=== PATIENT | male | born 1940 | race Caucasian/White ===

== ENCOUNTER 2021-04-09 16:06 | Emergency (ER) | payer BC ==
[2021-04-09 17:53] LABS: BASO % 1.1 % (0-2.0); EOS % 0.3 % (0-4.5); HEMATOCRIT 40.3 % (35.4-49); HEMOGLOBIN 13.3 GM/dL (11.7-16.9); LYMPH % 31.6 % (8-40); MCH 30.1 pg (25.7-33.7); MCHC 33.1 g/dl (32.0-35.9); MEAN CELL VOLUME 90.7 fl (80-96); MEAN PLT VOLUME 7.5 fl (7.5-11.1); MONO % 5.2 % (3.8-10.2); NEUT % 61.8 % (42.8-82.8); PLATELET COUNT 167 10^3/uL (134-434); RBC 4.44 M/mm3 (4.00-5.60); RDW 15.1 % (11.9-15.9); WHITE BLOOD COUNT 7.6 K/mm3 (4.0-10.0)
[2021-04-09] MEDS ORDERED: DIPHTH,PERTUSS(ACELL),TET 0.5 ML DISP.SYRIN IM ONE ×2 (18:10→18:49)
[2021-04-09 18:12] LABS: CHLORIDE 106 mmol/L (98-107); SODIUM 138 mmol/L (136-145)
[2021-04-09 18:14] LABS: CALCIUM 7.9 mg/dL (8.5-10.1)
[2021-04-09 18:15] LABS: ALBUMIN 3.9 g/dl (3.4-5.0); ANION GAP 8 MMOL/L (8-16); CO2 25 mmol/L (21-32); GLUCOSE,RANDOM 102 mg/dL (74-106)
[2021-04-09 18:17] VITALS: BP 142/89; PULSE 90; TEMP 97.9; BMI 30.4
[2021-04-09 18:17] LABS: SGPT/ALT 25 U/L (13-61)
[2021-04-09 18:18] LABS: CREATININE 1.1 mg/dL (0.55-1.3); SGOT/AST 32 U/L (15-37)
[2021-04-09 18:19] LABS: BILIRUBIN,TOTAL 0.5 mg/dL (0.2-1); TOT PROT 7.2 g/dl (6.4-8.2)
[2021-04-09 18:20] LABS: ALK PHOS 76 U/L (45-117)
[2021-04-10 12:30] LABS: MAGNESIUM 2.1 mg/dL (1.8-2.4)
[2021-04-10 12:35] LABS: PHOSPHOROUS 3.1 mg/dL (2.5-4.9)
== END 2021-04-09 19:00 | disposition left against medical advice (07) ==
LOC: JER 16:06
PROC: 3E0234Z Introduction of Serum, Toxoid and Vaccine into Muscle, Percutaneous Approach (ICD-10-PCS; principal; 2021-04-09)
DX: S01.21XA Laceration without foreign body of nose, initial encounter (principal)
CPT/HCPCS: 36415; 70450-TC; 72125-TC; 80053; 82550; 82553; 83735; 84100; 84484; 85025; 90715; 93005; 93010; 99285-25

== ENCOUNTER 2022-05-24 08:21 | Inpatient (IN) | payer BC ==
[2022-05-24] MEDS ORDERED: SODIUM CHLORIDE 1,000 ML IV STA ×2 (09:17→14:48)
[2022-05-24] MEDS ORDERED: VANCOMYCIN 1 GM in D5W (PRE-DOCKED) 1,000 MG/250 ML IVPB ONE (10:01)
[2022-05-24] MEDS ORDERED: PIPERACILLIN/TAZOB 3.375 GM 3.375 GM in DEXTROSE 5%-WATER - 50 ML IVPB ONE (10:04)
[2022-05-24 10:09] LABS: BASO % 1.4 % (0-2.0); EOS % 1.4 % (0-4.5); HEMATOCRIT 41.1 % (35.4-49); HEMOGLOBIN 13.9 GM/dL (11.7-16.9); MCH 31.1 pg (25.7-33.7); MCHC 33.9 g/dl (32.0-35.9); MEAN CELL VOLUME 91.9 fl (80-96); MEAN PLT VOLUME 8.8 fl (7.5-11.1); MONO % 9.3 % (3.8-10.2); NEUT % 62.9 % (42.8-82.8); PLATELET COUNT 185 10^3/uL (134-434); RBC 4.47 M/mm3 (4.00-5.60); RDW 13.8 % (11.9-15.9); WHITE BLOOD COUNT 6.6 K/mm3 (4.0-10.0)
[2022-05-24 10:30] LABS: ALBUMIN 3.9 g/dl (3.4-5.0); BLOOD UREA NITROGEN 18.4 mg/dL (7-18); CALCIUM 8.7 mg/dL (8.5-10.1)
[2022-05-24 10:33] LABS: CREATININE 1.3 mg/dL (0.55-1.3)
[2022-05-24] MEDS ORDERED: VANCOMYCIN/WATER FOR INJ (PEG) 1,000 MG/200 ML BAG IVPB ONE (10:34)
[2022-05-24] MEDS ORDERED: PIPERACILLIN/TAZOB 3.375 GM 3.375 GM/50 ML BAG IVPB ONE ×2 (10:35→21:58)
[2022-05-24 11:22] LABS: INR 1.09 (0.83-1.09); PROTHROMBIN TIME (PATIENT) 12.6 SEC (9.7-13.0)
[2022-05-24 11:24] LABS: ACTIVATED PTT 30.1 SECONDS (25.2-36.5)
[2022-05-24] MEDS ORDERED: OFLOXACIN 0.3% OTIC SOLUTION 5 ML BOTTLE AS ONE (16:25)
[2022-05-24] MEDS ORDERED: SODIUM CHLORIDE 1,000 ML IV SCH (17:00)
[2022-05-24] MEDS ORDERED: amLODIPine BESYLATE 5 MG TABLET (FP) ONE (17:37)
[2022-05-24] MEDS: amLODIPine BESYLATE 5 MG TABLET (FP) PO SCH (17:48)
[2022-05-24] MEDS ORDERED: PIPERACILLIN/TAZOB 3.375 GM 3.375 GM in DEXTROSE 5%-WATER - 50 ML IVPB SCH (18:00)
[2022-05-24 22:40] LABS: URINE APPEARANCE CLEAR; URINE BILIRUBIN NEGATIVE (NEGATIVE); URINE COLOR YELLOW; URINE GLUCOSE (UA) NEGATIVE (NEGATIVE); URINE KETONE NEGATIVE (NEGATIVE); URINE LEUK ESTERASE NEGATIVE (NEGATIVE); URINE NITRITE NEGATIVE (NEGATIVE); URINE PROTEIN NEGATIVE (NEGATIVE)
[2022-05-25 02:00] VITALS: BMI 25.2
[2022-05-25] MEDS: PIPERACILLIN/TAZOB 3.375 GM 3.375 GM in DEXTROSE 5%-WATER - 50 ML IVPB SCH ×3 (05:09→17:28)
[2022-05-25 09:19] LABS: BASO % 2.4 % (0-2.0); EOS % 2.8 % (0-4.5); HEMATOCRIT 42.2 % (35.4-49); HEMOGLOBIN 13.9 GM/dL (11.7-16.9); LYMPH % 24.2 % (8-40); MCH 30.3 pg (25.7-33.7); MCHC 32.9 g/dl (32.0-35.9); MEAN CELL VOLUME 92.3 fl (80-96); MEAN PLT VOLUME 9.6 fl (7.5-11.1); MONO % 7.8 % (3.8-10.2); NEUT % 62.8 % (42.8-82.8); PLATELET COUNT 179 10^3/uL (134-434); RBC 4.57 M/mm3 (4.00-5.60); RDW 13.7 % (11.9-15.9); WHITE BLOOD COUNT 4.9 K/mm3 (4.0-10.0)
[2022-05-25 09:26] LABS: INR 1.1 (0.83-1.09); PROTHROMBIN TIME (PATIENT) 12.7 SEC (9.7-13.0)
[2022-05-25 09:29] LABS: ACTIVATED PTT 27.9 SECONDS (25.2-36.5)
[2022-05-25 09:35] LABS: ALBUMIN 3.5 g/dl (3.4-5.0); CALCIUM 8.4 mg/dL (8.5-10.1)
[2022-05-25 09:38] LABS: CREATININE 1.2 mg/dL (0.55-1.3); PHOSPHOROUS 2.4 mg/dL (2.5-4.9)
[2022-05-25 09:40] LABS: BILIRUBIN,TOTAL 0.7 mg/dL (0.2-1); TOT PROT 6.3 g/dl (6.4-8.2)
[2022-05-25] MEDS: ENOXAPARIN NA (PORCINE) 40 MG/0.4 ML DISP.SYRIN SQ SCH (09:50)
[2022-05-25] MEDS: OFLOXACIN 0.3% OTIC SOLUTION 5 ML BOTTLE AS SCH (09:51)
[2022-05-25] MEDS: amLODIPine BESYLATE 5 MG TABLET (FP) PO SCH (09:51)
[2022-05-25] MEDS: VANCOMYCIN/WATER FOR INJ (PEG) 1,000 MG/200 ML BAG IVPB SCH ×2 (11:36→22:51)
[2022-05-25] MEDS: LOSARTAN POTASSIUM 50 MG TABLET PO SCH (14:26)
[2022-05-25] MEDS ORDERED: PIPERACILLIN/TAZOB 3.375 GM 3.375 GM in DEXTROSE 5%-WATER - 50 ML IVPB SCH (18:00)
[2022-05-25] MEDS ORDERED: LOSARTAN POTASSIUM 25 MG TABLET PO ONE (23:01)
[2022-05-26] MEDS: PIPERACILLIN/TAZOB 3.375 GM 3.375 GM in DEXTROSE 5%-WATER - 50 ML IVPB SCH ×3 (01:20→17:24)
[2022-05-26 09:50] LABS: BASO % 1.8 % (0-2.0); EOS % 1.4 % (0-4.5); HEMATOCRIT 45.1 % (35.4-49); LYMPH % 24.8 % (8-40); MCHC 33.2 g/dl (32.0-35.9); MEAN CELL VOLUME 93.5 fl (80-96); MEAN PLT VOLUME 8.7 fl (7.5-11.1); MONO % 13.1 % (3.8-10.2); NEUT % 58.9 % (42.8-82.8); PLATELET COUNT 191 10^3/uL (134-434); RBC 4.83 M/mm3 (4.00-5.60); RDW 13.6 % (11.9-15.9); WHITE BLOOD COUNT 4.9 K/mm3 (4.0-10.0)
[2022-05-26 09:56] LABS: CALCIUM 8.7 mg/dL (8.5-10.1)
[2022-05-26 09:57] LABS: ALBUMIN 3.8 g/dl (3.4-5.0); BLOOD UREA NITROGEN 17.4 mg/dL (7-18)
[2022-05-26 10:00] LABS: CREATININE 1.3 mg/dL (0.55-1.3)
[2022-05-26 10:02] LABS: BILIRUBIN,TOTAL 0.5 mg/dL (0.2-1); TOT PROT 6.9 g/dl (6.4-8.2)
[2022-05-26] MEDS: amLODIPine BESYLATE 10 MG TABLET (FP) PO SCH (10:16)
[2022-05-26] MEDS: LOSARTAN POTASSIUM 50 MG TABLET PO SCH (10:16)
[2022-05-26] MEDS: ENOXAPARIN NA (PORCINE) 40 MG/0.4 ML DISP.SYRIN SQ SCH (10:17)
[2022-05-26] MEDS: OFLOXACIN 0.3% OTIC SOLUTION 5 ML BOTTLE AS SCH (10:17)
[2022-05-26 10:51] LABS: ERYTHROCYTE SEDIMENTATION RATE 5 mm/hr (0-20)
[2022-05-26] MEDS: VANCOMYCIN/WATER FOR INJ (PEG) 1,000 MG/200 ML BAG IVPB SCH ×2 (11:16→22:58)
[2022-05-26 21:34] VITALS: RESP 20
[2022-05-27] MEDS: PIPERACILLIN/TAZOB 3.375 GM 3.375 GM in DEXTROSE 5%-WATER - 50 ML IVPB SCH ×2 (01:34→09:16)
[2022-05-27] MEDS: LOSARTAN POTASSIUM 50 MG TABLET PO SCH (09:15)
[2022-05-27] MEDS: amLODIPine BESYLATE 10 MG TABLET (FP) PO SCH (09:15)
[2022-05-27] MEDS: ENOXAPARIN NA (PORCINE) 40 MG/0.4 ML DISP.SYRIN SQ SCH (09:15)
[2022-05-27] MEDS: OFLOXACIN 0.3% OTIC SOLUTION 5 ML BOTTLE AS SCH (09:16)
[2022-05-27 09:44] LABS: EOS % 1.9 % (0-4.5); HEMATOCRIT 44.5 % (35.4-49); HEMOGLOBIN 14.7 GM/dL (11.7-16.9); LYMPH % 37.4 % (8-40); MCH 30.5 pg (25.7-33.7); MCHC 33.1 g/dl (32.0-35.9); MEAN CELL VOLUME 92.1 fl (80-96); MEAN PLT VOLUME 8.9 fl (7.5-11.1); MONO % 11.1 % (3.8-10.2); NEUT % 47.6 % (42.8-82.8); PLATELET COUNT 193 10^3/uL (134-434); RBC 4.84 M/mm3 (4.00-5.60); RDW 14.2 % (11.9-15.9); WHITE BLOOD COUNT 6.3 K/mm3 (4.0-10.0)
[2022-05-27 10:37] LABS: ALBUMIN 3.8 g/dl (3.4-5.0); BLOOD UREA NITROGEN 15.1 mg/dL (7-18); CALCIUM 8.8 mg/dL (8.5-10.1)
[2022-05-27 10:40] LABS: CREATININE 1.3 mg/dL (0.55-1.3)
[2022-05-27 10:42] LABS: BILIRUBIN,TOTAL 0.4 mg/dL (0.2-1); TOT PROT 7.1 g/dl (6.4-8.2)
[2022-05-27] MEDS: VANCOMYCIN/WATER FOR INJ (PEG) 1,000 MG/200 ML BAG IVPB SCH (11:40)
[2022-05-27 14:55] VITALS: BP 128/82; PULSE 77; TEMP 98.1
== END 2022-05-27 15:00 | disposition home or self-care (01) | DRG 155 ==
LOC: JER 08:21 → JERBED 16:22 → J7W 23:48
PROVIDERS: ADMIT Internal Medicine; ATTEND Internal Medicine
DX: H60.392 Other infective otitis externa, left ear (principal); L03.211 Cellulitis of face; I10 Essential (primary) hypertension; L01.09 Other impetigo; I16.0 Hypertensive urgency; H66.93 Otitis media, unspecified, bilateral; Z86.73 Personal history of transient ischemic attack (TIA), and cerebral infarction without residual deficits
CPT/HCPCS: 36415; 70480-TC; 80053; 80061; 81003; 82962; 83036; 83735; 84100; 84443; 85025; 85610; 85651; 85730; 86140; 87040; 87070; 87086; 87186; 87205; 93005; 93010; 99285-25; C9803-CS; U0003; U0005

== ENCOUNTER 2022-06-22 09:11 | Emergency (ER) | payer BC ==
[2022-06-22 09:18] VITALS: BP 142/77; PULSE 88; RESP 16; TEMP 98.2; BMI 25.8
[2022-06-22 10:07] LABS: BASO % 1.6 % (0-2.0); EOS % 2.4 % (0-4.5); HEMATOCRIT 41.8 % (35.4-49); HEMOGLOBIN 13.6 GM/dL (11.7-16.9); LYMPH % 20.9 % (8-40); MCH 30.2 pg (25.7-33.7); MCHC 32.6 g/dl (32.0-35.9); MEAN CELL VOLUME 92.5 fl (80-96); MEAN PLT VOLUME 9.8 fl (7.5-11.1); NEUT % 68.1 % (42.8-82.8); PLATELET COUNT 208 10^3/uL (134-434); RBC 4.52 M/mm3 (4.00-5.60); RDW 13.7 % (11.9-15.9); WHITE BLOOD COUNT 10.3 K/mm3 (4.0-10.0)
[2022-06-22 10:10] LABS: URINE APPEARANCE CLEAR; URINE BILIRUBIN NEGATIVE (NEGATIVE); URINE COLOR YELLOW; URINE GLUCOSE (UA) NEGATIVE (NEGATIVE); URINE KETONE NEGATIVE (NEGATIVE); URINE LEUK ESTERASE NEGATIVE (NEGATIVE); URINE NITRITE NEGATIVE (NEGATIVE); URINE PROTEIN NEGATIVE (NEGATIVE); URINE UROBILINOGEN 0.2 mg/dL (0.2-1.0)
[2022-06-22 10:21] LABS: BLOOD UREA NITROGEN 32.3 mg/dL (7-18); CALCIUM 9.2 mg/dL (8.5-10.1)
[2022-06-22 10:25] LABS: BILIRUBIN,TOTAL 0.8 mg/dL (0.2-1); CREATININE 1.9 mg/dL (0.55-1.3)
[2022-06-22 10:26] LABS: TOT PROT 7.5 g/dl (6.4-8.2)
== END 2022-06-22 11:17 | disposition short-term general hospital (02) ==
LOC: JER 09:11
DX: H60.313 Diffuse otitis externa, bilateral (principal)
CPT/HCPCS: 36415; 80053; 81003; 83036; 85025; 87070; 87077; 87186; 87205; 99284-25

== ENCOUNTER 2024-02-24 07:33 | Day surgery (SDC) | payer BC ==
[2024-02-17 15:37] VITALS: BMI 26.6
[2024-02-24] MEDS ORDERED: ceFAZolin SODIUM 1 GM VIAL ONE ×2 (08:40→09:26)
[2024-02-24] MEDS ORDERED: MIDAZOLAM HCL 2 MG/2 ML SINGLE DOSE VIAL ONE (08:40)
[2024-02-24] MEDS ORDERED: PROPOFOL 40 ML ONE (08:40)
[2024-02-24] MEDS ORDERED: ERYTHROMYCIN 0.5% OPHTHALMIC OINTMENT 3.5 GM TUBE ONE (09:26)
[2024-02-24] MEDS ORDERED: TETRACAINE 0.5% OPHTH SOLN 2 ML BOTTLE ONE (09:26)
[2024-02-24] MEDS ORDERED: BUPIVACAINE HCL/PF 0.5% (5MG/ML) 10 ML VIAL ONE (09:27)
[2024-02-24] MEDS ORDERED: THROMBIN (BOVINE) 5,000 UNIT VIAL TP ONE (09:27)
[2024-02-24] MEDS ORDERED: LIDOCAINE 1%/EPI 1:100000 (20 ML MULTI DOSE VIAL) ONE (09:27)
[2024-02-24] MEDS ORDERED: POVIDONE-IODINE 5% OPHTHALMIC PREP 30 ML SOLUTION ONE (09:27)
[2024-02-24] MEDS: BUPIVACAINE HCL/PF 0.5% (5 MG/ML) 30 ML VIAL IJ ONE ×2 (09:46)
[2024-02-24] MEDS: LIDOCAINE 1%/EPI 1:100000 (20 ML MULTI DOSE VIAL) IJ ONE ×2 (09:46)
[2024-02-24] MEDS ORDERED: ONDANSETRON 4 MG/2 ML VIAL ONE (09:59)
[2024-02-24] MEDS ORDERED: oxyCODONE HCL 5 MG TABLET PO PRN (10:56)
[2024-02-24] MEDS ORDERED: ONDANSETRON 4 MG/2 ML VIAL IVPUSH PRN (10:56)
[2024-02-24] MEDS ORDERED: LACTATED RINGERS SOLUTION 1,000 ML IV SCH (11:00)
[2024-02-24] MEDS: ACETAMINOPHEN 1000 MG/100 ML BAG IVPB ONE (11:00)
[2024-02-24] MEDS ORDERED: ACETAMINOPHEN INJECTION 100 ML IVPB ONE (11:11)
[2024-02-24 11:51] VITALS: RESP 18; TEMP 97.4
[2024-02-24 12:02] VITALS: BP 138/65; PULSE 58
== END 2024-02-24 12:03 | disposition home or self-care (01) ==
LOC: FASU 07:33
PROVIDERS: ATTEND Ophthalmology
PROC: 08BR0ZZ Excision of Left Lower Eyelid, Open Approach (ICD-10-PCS; principal; 2024-02-24 09:55)
DX: H02.035 Senile entropion of left lower eyelid (principal)
CPT/HCPCS: 94760; J0131